=== PATIENT | male | born 1980 | race African-American/Black ===

== ENCOUNTER 2017-02-25 08:21 | Emergency (ER) | payer OTHER ==
[~2017-02-25] VITALS: Ht 172.7 cm; Wt 76.8 kg
[~2017-02-25 08:21] MED LIST: ATEN25TA7 PO; LORA-476 PO
[2017-02-25 08:36] VITALS: BP 122/84
--- NOTE | 2017-02-25 08:53 | NUR ---
PATIENT PRESENTS TO ED WITH intermittent bouts of anxiety--requesting xanax refill until he has appt with therapist . PT STATES . DENIES N/V/D; SKIN IS PINK/WARM/DRY; AAOX4 WITH EVEN AND STEADY GAIT; LUNGS CLEAR BL; HR EVEN AND REGULAR; PT DENIES ANY FEVER, CP, SOB, OR COUGH AT THIS TIME; PATIENT STATES PAIN OF 0/10 AT THIS TIME; VSS; PATIENT POSITIONED FOR COMFORT; HOB ELEVATED; BEDRAILS UP X2; BED DOWN. ER MD MADE AWARE OF PT STATUS.
[2017-02-25 09:37] VITALS: BP 122/84
--- NOTE | 2017-02-25 09:38 | NUR ---
pt left without d/c papers----ambulated out of the er after speaking with .
== END 2017-02-25 09:37 | disposition home or self-care (01) ==
LOC: MED 08:21
DX: Z76.0 Encounter for issue of repeat prescription (principal); F41.9 Anxiety disorder, unspecified; I10 Essential (primary) hypertension
CPT/HCPCS: 99283

== ENCOUNTER 2023-12-27 04:50 | Emergency (ER) | payer OTHER ==
[~2023-12-27] VITALS: Ht 175.3 cm; Wt 90.7 kg
[2023-12-27 04:57] VITALS: BP 138/85; PULSE 92; RESP 18; TEMP 97.6; O2SAT 98
[2023-12-27 05:05] VITALS: O2SAT 98
[2023-12-27] MEDS ORDERED: DICYCLOMINE HCL LIQUID 10 MG/5 ML UDC ONE (05:24)
[2023-12-27] MEDS ORDERED: ALUMINUM HYD/MAG/SIMETHICONE 30 ML UDC ONE (05:24)
[2023-12-27] MEDS: DICYCLOMINE HCL LIQUID 20 MG, ALUMINUM HYD/MAG/SIMETHICONE 30 ML, LIDOCAINE VISCOUS 2% ... PO ONE (05:29)
[2023-12-27] MEDS: ONDANSETRON 4 MG ODT PO ONE (05:31)
[2023-12-27] MEDS ORDERED: ONDA8TAB87 PO (05:36)
[2023-12-27] MEDS ORDERED: OMEP40EC23 PO (05:36)
== END 2023-12-27 05:46 | disposition home or self-care (01) ==
LOC: MED 04:50
DX: R10.13 Epigastric pain (principal); R11.2 Nausea with vomiting, unspecified; I10 Essential (primary) hypertension; Z79.899 Other long term (current) drug therapy
CPT/HCPCS: 99284; Q0162